=== PATIENT | male | born 1965 | race Caucasian/White ===

== ENCOUNTER 2018-04-09 06:09 | Emergency (ER) | payer BC, SELFPAY ==
[2018-04-09 07:13] LABS: Potassium 3.6 mEq/L (3.6-5.0)
[2018-04-09 07:19] LABS: Absolute Lymphocytes (CBC) 1.2 K/uL (0.7-4.9); Absolute Monocytes 1.3 K/uL (0.1-1.3); Absolute Neutrophil 8.2 K/uL (1.8-8.0); Basophils % 0.3 % (0-1.3); Eosinophils % 3.4 % (0-4.4); Hematocrit 37.9 % (39.6-49.0); Lymphocytes % 10.9 % (15.3-44.8); MCH 27.8 pg (27.0-35.0); MCV 82.7 fL (80-100); MPV 7.8 fL (7.6-11.3); Monocytes % 11.7 % (3.3-12.3); RBC Red Blood Cell Count 4.58 M/uL (4.33-5.43)
[2018-04-09] MEDS ORDERED: NA CHLORIDE 0.9% 1,000 ML ONE (08:05)
[2018-04-09 08:23] LABS: Urine Blood NEGATIVE (NEG); Urine Glucose NEGATIVE (NEG); Urine Protein NEGATIVE (NEG); Urine Specific Gravity <1.005 (1.005-1.030)
--- NOTE | 2018-04-09 08:26 | EDPHYS ---
Physician Documentation [facility] Name: Shamir Perea Age: 53 yrs Sex: Male : 1965 Arrival Date: 04/09/2018 Time: 06:13 Bed 7 Private MD: ED Physician Chao Hernandez HPI: 04/09 07:25 This 53 yrs old Male presents to ER via Ambulatory with complaints of Fever, jr8 Body aches. 07:25 The patient reports fever, not measured (subjective). Onset: The symptoms/episode jr8 began/occurred suddenly, 2 week(s) ago. Modifying factors: there are no obvious modifying factors. Associated signs and symptoms: Pertinent positives: arthralgias, cough, headache, nausea, sinus congestion, sore throat, vomiting. Severity of symptoms: At their worst the symptoms were moderate in the emergency department the symptoms are unchanged. The patient has not experienced similar symptoms in the past. The patient has been recently seen by a physician:. Patient stated that he has been to [place] for current problems and has been given both steroids and antibiotics. Neither have given relief. Stated that he continues to have joint pain, headaches, stiff neck, fevers. Historical: - Allergies: 06:33 flu vaccine; bb - Home Meds: 06:33 Calcium, Vitamin D [Active]; cetirizine 10 mg oral tab 1 tab once daily [Active]; bb divalproex 500 mg oral Tb24 2 tabs once daily [Active]; fluticasone 50 mcg/actuation nasal spsn 1 spray 2 times per day [Active]; prazosin 2 mg Oral cap 2 caps nightly [Active]; trazodone 150 mg oral tab nightly [Active]; - PMHx: 06:33 allergies; bb - PSHx: 06:33 Hernia repair; Appendectomy; foot surgery; bb - Immunization history:: Adult Immunizations up to date. - Social history:: Smoking status: Patient/guardian denies using tobacco, Patient/guardian denies using alcohol, street drugs. - Ebola Screening: : No symptoms or risks identified at this time. ROS: 07:25 Eyes: Negative for injury, pain, redness, and discharge, Cardiovascular: Negative for jr8 chest pain, palpitations, and edema, Back: Negative for injury and pain, MS/Extremity: Negative for injury and deformity, Skin: Negative for injury, rash, and discoloration. 07:25 Constitutional: Positive for body aches, fever. 07:25 ENT: Positive for sinus congestion, sore throat, Negative for drainage from ear(s), ear pain, nasal discharge, difficulty swallowing, difficulty handling secretions, hoarseness. 07:25 Neck: Positive for pain with movement, pain at rest, stiffness, Negative for tenderness, bony tenderness. 07:25 Respiratory: Positive for cough, Negative for shortness of breath, sputum production, wheezing. 07:25 Abdomen/GI: Positive for nausea and vomiting, Negative for abdominal pain, diarrhea, abdominal distension, hematemesis, black/tarry stool, rectal pain, rectal bleeding, bowel incontinence, flatulence. 07:25 Neuro: Positive for headache, Negative for altered mental status, dizziness, gait disturbance, hearing loss, loss of consciousness, numbness, seizure activity, speech changes, syncope, near syncope, tingling, tinnitus, tremor, visual changes, weakness. Exam: 07:25 Eyes: Pupils equal round and reactive to light, extra-ocular motions intact. Lids and jr8 lashes normal. Conjunctiva and sclera are non-icteric and not injected. Cornea within normal limits. Periorbital areas with no swelling, redness, or edema. ENT: Nares patent. No nasal discharge, no septal abnormalities noted. Tympanic membranes are normal and external auditory canals are clear. Oropharynx with no redness, swelling, or masses, exudates, or evidence of obstruction, uvula midline. Mucous membranes moist. Cardiovascular: Regular rate and rhythm with a normal S1 and S2. No gallops, murmurs, or rubs. Normal PMI, no JVD. No pulse deficits. Respiratory: Lungs have equal breath sounds bilaterally, clear to auscultation and percussion. No rales, rhonchi or wheezes noted. No increased work of breathing, no retractions or nasal flaring. Abdomen/GI: Soft, non-tender, with normal bowel sounds. No distension or tympany. No guarding or rebound. No evidence of tenderness throughout. Back: No spinal tenderness. No costovertebral tenderness. Full range of motion. Skin: Warm, dry with normal turgor. Normal color with no rashes, no lesions, and no evidence of cellulitis. MS/ Extremity: Pulses equal, no cyanosis. Neurovascular intact. Full, normal range of motion. Neuro: Awake and alert, GCS 15, oriented to person, place, time, and situation. Cranial nerves II-XII grossly intact. Motor strength 5/5 in all extremities. Sensory grossly intact. Cerebellar exam normal. Normal gait. 07:25 Neck: External neck: is normal, C-spine: appears grossly normal, no vertebral tenderness, Thyroid: appears normal, no enlargement, no nodules, no tenderness, Trachea: is midline with no obvious abnormalities, ROM/movement: pain, that is mild, with any movement, Meningeal signs: are not present, nuchal rigidity, is not appreciated, Lymph nodes: no appreciated lymphadenopathy. Vital Signs: 06:33 BP 110 / 72; Pulse 73; Resp 18 S; Temp 99.4(O); Pulse Ox 97% on R/A; Weight 98.88 kg bb (R); Height 6 ft. 1 in. (185.42 cm) (R); Pain 10/10; 08:00 BP 124 / 88; Pulse 64; Resp 16; Pulse Ox 98% ; sg 06:33 Body Mass Index 28.76 (98.88 kg, 185.42 cm) bb MDM: 06:17 Patient medically screened. jr8 07:57 Data reviewed: vital signs, nurses notes, lab test result(s), radiologic studies, plain jr8 films. Data interpreted: Pulse oximetry: on room air is 97 %. Interpretation: normal. Counseling: I had a detailed discussion with the patient and/or guardian regarding: the historical points, exam findings, and any diagnostic results supporting the discharge/admit diagnosis, lab results, radiology results. ED course: Reexamined patient. Patient stated that he is almost completely asymptomatic now after the fluids. Feeling much better. Will give another liter of fluids and discharge home most likely . 08:22 Response to treatment: the patient's symptoms have markedly improved after treatment, jr8 patient is well hydrated. ED course: Patient now asymptomatic. Most likely viral illness that has not completely resolved. Dehydration on top of that. Explained to him that there was concern for viral meningitis with the headache and stiff neck. No nuchal rigidity or meningismus noted on exam. Since patient feeling much better will forgo lumbar puncture at this time which patient is happy about. Explained to him if he feels worse that he needs to come back and have that done. Patient understood and would follow instructions . 04/09 06:36 Order name: Influenza Screen (a \T\ B); Complete Time: 07:24 04/09 06:36 Order name: Barnes Screen Profile; Complete Time: 07:43 04/09 06:36 Order name: CBC with Diff; Complete Time: 07:43 04/09 06:36 Order name: Basic Metabolic Panel; Complete Time: 07:24 04/09 06:36 Order name: Westergren Sedrate; Complete Time: 07:43 04/09 08:16 Order name: Urine Dipstick--Ancillary (enter results) em1 04/09 06:36 Order name: IV; Complete Time: 06:52 04/09 06:36 Order name: XRAY CXR (1 view) 04/09 06:38 Order name: Urine Dipstick-Ancillary (obtain specimen); Complete Time: 08:02 Administered Medications: 07:06 Drug: NS 0.9% 1000 ml Route: IV; Rate: 1000 ml; Site: left antecubital; rv 08:00 Drug: NS 0.9% 1000 ml Route: IV; Rate: 1000 ml; Site: left antecubital; Disposition: 04/09/18 08:25 Discharged to Home. Impression: Viral infection, unspecified, Viral cephalgia . - Condition is Stable. - Discharge Instructions: Antibiotic Resistance, Viral Infections. - Work release form, Family Work Release, Medication Reconciliation Form, Thank You Letter, Antibiotic Education, Prescription Opioid Use form. - Follow up: Private Physician; When: 2 - 3 days; Reason: Recheck today's complaints, Continuance of care, Re-evaluation by your physician. - Problem is new. - Symptoms have improved. Addendum: 04/10/2018 10:10 Co-signature as Attending Physician, Chao Hernandez MD I agree with the assessment and c perales plan of care. Signatures: Dispatcher [employer] Carlos Garcia RN RN sg Anderson, Corey, MD MD cha Ballard, Brenda, RN RN Jarrell Marlow, RENEE PA jr8 Horacio Morrow RN RN rv Corrections: (The following items were deleted from the chart) 04/09 09:21 08:25 04/09/2018 08:25 Discharged to Home. Impression: Viral infection, unspecified; sg Viral cephalgia . Condition is Stable. Forms are Medication Reconciliation Form, Thank You Letter, Antibiotic Education, Prescription Opioid Use. Follow up: Private Physician; When: 2 - 3 days; Reason: Recheck today's complaints, Continuance of care, Re-evaluation by your physician. Problem is new. Symptoms have improved. jr8
--- NOTE | 2018-04-09 08:26 | ER ---
Nurse's Notes [facility] Name: Shamir Perea Age: 53 yrs Sex: Male : 1965 Arrival Date: 04/09/2018 Time: 06:13 Bed 7 Private MD: Diagnosis: Viral infection, unspecified;Viral cephalgia Presentation: 04/09 06:25 Presenting complaint: Patient states: he has been having fever, cough, headache, stiff bb neck for several weeks [facility] and told it was a [facility] infection and given different medications but symptoms are not getting any better and now he has been vomiting the last couple of days. Transition of care: patient was not received from another setting of care. Onset of symptoms was March 2018. Risk Assessment: Do you want to hurt yourself or someone else? Patient reports no desire to harm self or others. Initial Sepsis Screen: Does the patient meet any 2 criteria? No. Patient's initial sepsis screen is negative. Does the patient have a suspected source of infection? No. Patient's initial sepsis screen is negative. Care prior to arrival: None. 06:25 Method Of Arrival: Ambulatory 06:25 Acuity: HALIMA 3 bb Historical: - Allergies: 06:33 flu vaccine; bb - Home Meds: 06:33 Calcium, Vitamin D [Active]; cetirizine 10 mg oral tab 1 tab once daily [Active]; bb divalproex 500 mg oral Tb24 2 tabs once daily [Active]; fluticasone 50 mcg/actuation nasal spsn 1 spray 2 times per day [Active]; prazosin 2 mg Oral cap 2 caps nightly [Active]; trazodone 150 mg oral tab nightly [Active]; - PMHx: 06:33 allergies; bb - PSHx: 06:33 Hernia repair; Appendectomy; foot surgery; bb - Immunization history:: Adult Immunizations up to date. - Social history:: Smoking status: Patient/guardian denies using tobacco, Patient/guardian denies using alcohol, street drugs. - Ebola Screening: : No symptoms or risks identified at this time. Assessment: 07:06 General: Appears in no apparent distress. comfortable, Behavior is calm, cooperative. rv Pain: Denies pain. 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 Cardiovascular: Capillary refill < 3 seconds. Respiratory: Airway is patent. GI: No signs and/or symptoms were reported involving the gastrointestinal system. : No signs and/or symptoms were reported regarding the genitourinary system. EENT: No signs and/or symptoms were reported regarding the EENT system. Derm: Skin is intact. Vital Signs: 06:33 BP 110 / 72; Pulse 73; Resp 18 S; Temp 99.4(O); Pulse Ox 97% on R/A; Weight 98.88 kg bb (R); Height 6 ft. 1 in. (185.42 cm) (R); Pain 10/10; 08:00 BP 124 / 88; Pulse 64; Resp 16; Pulse Ox 98% ; sg 06:33 Body Mass Index 28.76 (98.88 kg, 185.42 cm) bb ED Course: 06:13 Patient arrived in ED. es 06:16 Yariel Rosario RN is Primary Nurse. bp 06:17 Jarrell Suárez PA is PHCP. jr8 06:17 Chao Hernandez MD is Attending Physician. jr8 06:27 Triage completed. bb 06:33 Arm band placed on Patient placed in a hallway bed, on a stretcher, on pulse oximetry. bb Family accompanied patient. 06:45 Inserted saline lock: 20 gauge in left antecubital area, using aseptic technique. rv 06:49 X-ray completed. Portable x-ray completed in exam room. Patient tolerated procedure kp1 well. 06:50 XRAY CXR (1 view) In Process Unspecified. EDAK 07:30 Carlos Shah, RN is Primary Nurse. sg 08:09 Diet: Patient given snack. Tolerated well. sg 08:28 Awaiting: IV fluids to finishing infusing prior to d/c to home. sg Administered Medications: 07:06 Drug: NS 0.9% 1000 ml Route: IV; Rate: 1000 ml; Site: left antecubital; rv 08:00 Drug: NS 0.9% 1000 ml Route: IV; Rate: 1000 ml; Site: left antecubital; sg Outcome: 08:25 Discharge ordered by . jr8 09:21 Patient left the ED. sg Signatures: Dispatcher [employer] EDCarlos Ritchie RN RN Kenna Celestin Brenda, RN RN bb Jarrell Suárez PA PA jr8 Lisandra Rajan kp1 Yariel Rosario RN RN bp Horacio Morrow RN RN rv Corrections: (The following items were deleted from the chart) 07:07 07:07 Inserted saline lock: 20 gauge in left antecubital area, using aseptic technique. rv rv
--- NOTE | 2018-04-09 11:16 | RAD REPORT ---
EXAM DESCRIPTION: RAD - Chest Single View - 04/09/2018 6:51 am CLINICAL HISTORY: COUGH Chest pain. COMPARISON: No comparisons FINDINGS: Portable technique limits examination quality. The lungs are grossly clear. The heart is mildly prominent. No displaced fractures. IMPRESSION: No acute intrathoracic process suspected.
== END 2018-04-09 09:21 | disposition home or self-care (01) ==
LOC: ER 06:09
DX: B34.9 Viral infection, unspecified (principal); G44.89 Other headache syndrome; Z88.7 Allergy status to serum and vaccine
CPT/HCPCS: 36415; 71045; 80048; 81003; 85025; 85652; 86308; 87804; 99284; J7030